=== PATIENT | female | born 1980 | race Caucasian/White ===

== ENCOUNTER → 2023-08-11 | Outpatient (CLI) | payer BC ==
--- NOTE | 2023-08-11 08:48 | MM ---
Reason for Exam: Clinical finding. Last mammogram was performed 8 year(s) and 11 month(s) ago. Indicated Problems: Lump or thickening of the left side for 2 Month(s). Patient History: Menarche at age 11. First Full-Term at age 24. Patient has history of breast feeding. Last menstrual period: 08/08/2023 Risk Values: Elisha 5 year model risk: 0.9%. NCI Lifetime model risk: 10.7%. Prior Study Comparison: 09/15/2014 Bilateral Screening Mammogram, [facility]. Tissue Density: The breast tissue is heterogeneously dense. This may lower the sensitivity of mammography. Findings: Analyzed By CAD. Nodular asymmetric density posterior central right breast outer aspect on the CC view becomes less defined on spot compression view. Possibly moves laterally on the lateral view. No clear correlate on the MLO or true lateral view. This may represent superimposition shadow but further ultrasound evaluation is recommended. Unchanged appearance to the subareolar fibroglandular density on the left. Anterior upper outer quadrant palpable marker on the left. No significant change otherwise seen. Overall Assessment: Incomplete: need additional imaging evaluation, BI-RAD 0 Management: Diagnostic Breast Ultrasound of both breasts. On the right 11 and 12:00. On the left along the upper outer quadrant with particular attention to the palpable site. Electronically signed and approved by: Jessica Fields M.D. Radiologist
--- NOTE | 2023-08-11 09:17 | USB ---
Reason for Exam: Clinical finding. Patient History: Menarche at age 11. First Full-Term at age 24. Patient has history of breast feeding. Risk Values: Elisha 5 year model risk: 0.9%. NCI Lifetime model risk: 10.7%. Technique: Method: Targeted. Prior Study Comparison: 09/15/2014 Bilateral Screening Mammogram, [facility]. Findings: The upper outer quadrant of the left breast, the upper section of the breast of the right breast, the axilla of both breasts and the retroareolar of both breasts were scanned. Targeted ultrasound right breast 11 and 12:00 position. Focal dense tissue is present. No solid or cystic lesion. Six-month follow-up right breast mammogram recommended to reassess. Targeted ultrasound left breast upper outer quadrant 12:00 to 3:00 including the subareolar region and axilla. At the 12:00 position, 1 cm from the nipple, corresponding to the patient's palpable site, there is an circumscribed oval 1.3 x 1.0 x 1.0 cm solid isoechoic to hypoechoic mass with posterior through transmission and some peripheral vascularity. This may represent a fibroadenoma and confirmation of a benign etiology is recommended after tissue sampling. No other solid or cystic lesion or axillary lymphadenopathy. Overall Assessment: Suspicious, BI-RAD 4 Management: Ultrasound Core Biopsy of the left breast. 12:00 left breast at the palpable site, possible fibroadenoma. Results were given to the patient verbally at the time of exam. Electronically signed and approved by: Jessica Fields M.D. Radiologist
== END | disposition home or self-care (01) ==
LOC: RADMAMWWP 07:55
PROVIDERS: ATTEND Obstetrics & Gynecology
DX: N63.20 Unspecified lump in the left breast, unspecified quadrant (principal); R92.333 Mammographic heterogeneous density, bilateral breasts
CPT/HCPCS: 77062; 77066

== ENCOUNTER → 2023-08-29 | Day surgery (SDC) | payer BC ==
--- NOTE | 2023-09-04 12:09 | MM ---
Reason for Exam: Post Procedure Mammogram. Last screening mammogram was performed less than 1 month ago. Patient History: Menarche at age 11. First Full-Term at age 24. Patient has history of breast feeding. Risk Values: Elisha 5 year model risk: 0.9%. NCI Lifetime model risk: 10.7%. Prior Study Comparison: 09/15/2014 Bilateral Screening Mammogram, [facility]. 08/11/2023 Bilateral MG 3D diag mammo w/cad YUNIEL, [facility]. 08/11/2023 Bilateral US breast limited BILAT, [facility]. Tissue Density: Left: The breast tissue is heterogeneously dense. This may lower the sensitivity of mammography. Pathology Description: Location: 12 o'clock. Marker Left Behind. Needle Type: Mammotome Cores: 5 Gauge: 13 The procedure of ultrasound guided core biopsy was explained to the patient. Benefits, alternatives, and risks were discussed. An informed consent was then obtained. The patient was placed in supine positioning for imaging and for the procedure. The overlying skin was prepped and draped in usual sterile fashion. Lidocaine was used as anesthetic into the skin and subcutaneous tissue up to area of concern in the 12:00 left breast. The palpable, solid circumscribed oval mass with through transmission is identified and targeted for biopsy. Under ultrasound guidance, a 13-gauge vacuum-assisted mammotome biopsy gun was used to obtain 5 core samples. Following this, a coil clip was left in lesion. The patient tolerated the procedure well without any immediate complication. The patient was kept in the radiology department for short stay after the procedure and then discharged home in stable condition. Postprocedure mammogram: The patient was transferred to mammography for physician ordered post procedure mammogram for clip placement verification. Post procedure mammogram shows clip in place. IMPRESSION: Successful, uncomplicated ultrasound guided core biopsy of solid palpable 12:00 mass, suspected fibroadenoma in the left breast; full pathology results to follow. Pathology Results: Result: Benign, Fibroadenoma. LEFT BREAST, 12:00, ULTRASOUND GUIDED NEEDLE CORE BIOPSY: Fibroadenoma and background fibrocystic changes. Overall Assessment: Benign Assessment: MG diagnostic mammo LT wo CAD. - Left: Benign, BI-RAD 2. Management: Diagnostic Mammogram of the left breast in 6 months. Electronically signed and approved by: Jessica Fields M.D. Radiologist
== END ==
LOC: RADUSWWP 09:47
PROVIDERS: ATTEND Surgery
DX: D24.2 Benign neoplasm of left breast (principal); N60.12 Diffuse cystic mastopathy of left breast
CPT/HCPCS: 88305; 77065; 19083; A4648

== ENCOUNTER → 2023-09-10 | Outpatient (CLI) | payer BC ==
[2023-09-10 11:52] VITALS: BP 122/78; PULSE 51; RESP 17; TEMP 98.3
--- NOTE | 2023-09-10 12:02 | P.GSHP ---
History of Present Illness H&P Date: 09/10/23 Chief Complaint: Mass left breast Maryjo is a 43-year-old white female seen in consultation Dr. Sheikh regarding a mass in her left breast. She felt a lump in her breast several months ago. It has not changed in size. She underwent a bilateral screening mammogram on [id number]. This revealed heterogeneously dense breast tissue. Diagnostic ultrasound of both breasts was recommended. This was performed on the same date. The patient was noted to have no solid or cystic lesion of concern in the right breast. In the left breast at the 12 o'clock position a 1.3 x 1 cm solid lesion was identified. This was considered suspicious BIRADS 4. Ultrasound core biopsy was performed which was consistent with a fibroadenoma. This was felt to be benign concordant and repeat radiographic evaluation in 6 months was recommended. Has not had any previous breast biopsies or surgery on her breast. She is not complaining of any recent trauma or infection in the breast. Caffiene: 2 cups/day, and an energy drink nicotine: none chocolate: monthly BCP: used for about 5 years hormones: none Family History: Daughter: Kidney cancer at 3 [place]il[place] tumor Father: Colon cancer Hormonal history: Menarche: 11 , breast fed: yes, age at first : 24 periods regular Surgical history: Negative Medical history: none Social History: nicotine: none alcohol: occasional drugs: none - Constitutional Constitutional: Denies chills, Denies fever - EENT Eyes: denies blurred vision, denies pain Ears: deny: decreased hearing, tinnitus Ears, nose, mouth and throat: Denies headache, Denies sore throat - Breasts Breasts: bilateral: as per HPI - Cardiovascular Cardiovascular: Denies chest pain, Denies shortness of breath - Respiratory Respiratory: Denies cough, Denies 7 - Gastrointestinal Gastrointestinal: Denies abdominal pain, Denies diarrhea, Denies nausea, Denies vomiting - Genitourinary (Female) Genitourinary: Denies dysuria, Denies hematuria - Menstruation Menstruation: Reports period normal - Musculoskeletal Musculoskeletal: Denies myalgias - Integumentary Integumentary: Denies pruritus, Denies rash - Neurological Neurological: Denies numbness, Denies weakness - Psychiatric Psychiatric: Denies anxiety, Denies depression - Endocrine Endocrine: Denies fatigue, Denies weight change - Hematologic/Lymphatic Comment: none - Allergic/Immunologic Allergic/Immunologic: Reports as per HPI Past Medical History Past Medical History: No Reported History History of Any Multi-Drug Resistant Organisms: None Reported Past Surgical History: No Surgical Hx Reported Past Psychological History: No Psychological Hx Reported Smoking Status: Never smoker Past Alcohol Use History: None Reported Past Drug Use History: None Reported Medications and Allergies Home Medications Medication Instructions Recorded Confirmed Type No Known Home Medications 08/14/23 09/10/23 History Allergies Allergy/AdvReac Type Severity Reaction Status Date / Time codeine AdvReac Nausea & Verified 09/10/23 11:33 Vomiting Surgical - Exam Vital Signs Temp Pulse Resp BP Pulse Ox 98.3 F 51 L 17 122/78 100 09/10/23 11:35 09/10/23 11:35 09/10/23 11:35 09/10/23 11:35 09/10/23 11:35 - General no distress - Eyes normal ocular movement - Neck trachea midline - Respiratory normal respiratory effort, clear to auscultation - Cardiovascular Rhythm: regular - Abdomen Abdomen: soft, non tender, no guarding, no rigid, no rebound - Integumentary normal turgor - Neurologic no disoriented, no combative - Musculoskeletal normal gait, normal posture - Psychiatric oriented to time, oriented to person, oriented to place, speech is normal, memory intact Breast Exam: BRA: 38C Inspection: Bilateral grade 2 ptosis Palpation: Right breast: Dense breast, no dominant masses or nodules of concern Right axilla: No adenopathy of concern Left breast: Multiple positional exam dense breasts, fullness in the 12 o'clock position without a discrete mass clearly appreciated Left axilla: No adenopathy of concern Results Mammogram and ultrasound personally reviewed Assessment and Plan Assessment: Impression: Left breast ultrasound-guided core biopsy at 12:00 Plan: Bilateral ultrasound in 6 months Left breast diagnostic mammogram in 6 months Patient to follow up at that time Patient to follow up sooner any questions or concerns The patient is considering testosterone replacement I discussed that I'm uncertain as to whether this may have an effect on the breast. At this time she does not have anything radiographically or clinically suspicious for malignancy. We will keep. Close surveillance on the fibroadenoma in the left breast, if this begins to grow or become symptomatic she may consider resection at that time. CC: Dr. Whitman, Dr. Sheikh
== END ==
LOC: WWCWWP 11:01
PROVIDERS: ATTEND Surgery
DX: D24.2 Benign neoplasm of left breast (principal); Z88.5 Allergy status to narcotic agent

== ENCOUNTER → 2024-02-16 | Outpatient (CLI) | payer BC ==
--- NOTE | 2024-02-16 08:52 | MM ---
Reason for Exam: Follow-up at short interval from prior study. Last screening mammogram was performed 6 month(s) ago. Patient History: Menarche at age 11. First Full-Term at age 24. Patient has history of breast feeding. 08/29/2023, Benign US biopsy breast VAD LT on the left side. Risk Values: Elisha 5 year model risk: 1.3%. NCI Lifetime model risk: 12.9%. Prior Study Comparison: 09/15/2014 Bilateral Screening Mammogram, [facility]. 08/11/2023 Bilateral MG 3D diag mammo w/cad [facility], [facility]. 08/29/2023 Left MG diagnostic mammo LT wo CAD., [facility]. Tissue Density: Left: The breasts are heterogeneously dense, which may obscure small masses. Findings: Analyzed By CAD. The pattern is stable. A coil core marker is within the anterior upper outer left breast. No suspicious groups of microcalcifications, spiculated or lobular masses, architectural distortion or other secondary signs of malignancy are mammographically apparent. Overall Assessment: Incomplete: need additional imaging evaluation, BI-RAD 0 Management: Diagnostic Breast Ultrasound of both breasts. A negative mammogram report should not preclude additional follow up of suspicious palpable abnormalities. Patient should continue monthly self breast exam. A clinical breast exam by your physician is recommended on an annual basis and results should be correlated with mammographic findings. Note on Elisha scores and lifetime risk: 1. A Elisha score greater than 3% is considered moderate risk. If this is the case, consider specialist referral to assess eligibility for a risk reducing agent. 2. If overall lifetime risk for the development of breast cancer is 20% or higher, the patient may qualify for future screening with alternating mammogram and breast MRI. Electronically signed and approved by: Marlon Junior D.O. Radiologis
--- NOTE | 2024-02-16 09:31 | USB ---
Reason for Exam: Follow-up at short interval from prior study. Patient History: Menarche at age 11. First Full-Term at age 24. Patient has history of breast feeding. 08/29/2023, Benign US biopsy breast VAD LT on the left side. Risk Values: Elisha 5 year model risk: 1.3%. NCI Lifetime model risk: 12.9%. Technique: Method: Whole Breast Handheld. Doppler: Color. Patient Position: Supine. Prior Study Comparison: 09/15/2014 Bilateral Screening Mammogram, [facility]. 08/11/2023 Bilateral MG 3D diag mammo w/cad YUNIEL, [facility]. 08/11/2023 Bilateral US breast limited BILAT, [facility]. 08/29/2023 Left MG diagnostic mammo LT wo CAD., [facility]. Findings: The whole breast of both breasts, the axilla of both breasts and the retroareolar of both breasts were scanned. Patient surgical clip within the left breast is identified 12:00 position 3 cm multiple. In the radial 11:00 position 6 cm from nipple there is an approximate 1.2 x 0.9 cm heterogenous area. The more central hypodensity appears to elongate on the antiradial imaging. This is parallel to the chest wall. Biopsy is recommended. At the 9:00 position 6 cm from nipple there may be a cluster of cysts. Short-term follow-up with ultrasound is recommended. Within the right axilla and there may be some focal prominence of the cortex of a lymph node. Short-term follow-up is recommended. Overall Assessment: Suspicious, BI-RAD 4 Management: Ultrasound Core Biopsy of the right breast. A clinical breast exam by your physician is recommended on an annual basis and results should be correlated with mammographic findings. This exam should not preclude additional follow-up of suspicious palpable abnormalities. Results were given to the patient verbally at the time of exam. Electronically signed and approved by: Marlon Junior D.O. Radiologis
== END | disposition home or self-care (01) ==
LOC: RADMAMWWP 08:14
PROVIDERS: ATTEND Surgery
DX: R92.332 Mammographic heterogeneous density, left breast (principal)
CPT/HCPCS: 77061; 77065

== ENCOUNTER → 2024-03-03 | Day surgery (SDC) | payer BC ==
--- NOTE | 2024-03-03 11:02 | USB ---
Risk Values: Elisha 5 year model risk: 1.3%. NCI Lifetime model risk: 12.9%. Findings: Initial scanning of the right breast 11:00 position, 6 cm from the nipple shows a slightly different appearance to the intended biopsy target, now suggesting a patch of dense tissue with embedded cyst measuring 1.2 x 1.1 x 0.4 cm. This does not have a suspicious appearance. As a precautionary measure, it can be reassessed at the patient's annual exam. Biopsy is being deferred at this time. Findings and impression were discussed with the patient. BI-RADS assessment category 3, probably benign. RECOMMENDATION: Diagnostic Mammogram in 5 months, back on schedule. Right breast ultrasound to reassess the 11:00 position as a precautionary measure. Management: Diagnostic Mammogram of both breasts in 5 months. Electronically signed and approved by: Jessica Fields M.D. Radiologist
== END ==
LOC: RADUSWWP 10:17
PROVIDERS: ATTEND Surgery
DX: R92.8 Other abnormal and inconclusive findings on diagnostic imaging of breast (principal)